=== PATIENT | female | born 1945 | race Caucasian/White ===

== ENCOUNTER 2020-03-21 13:18 | Observation (INO) | payer MEDICARE ==
[~2020-03-21] VITALS: Ht 162.6 cm; Wt 56.9 kg
[~2020-03-21 13:18] MED LIST: APIX5TAB PO; ATOR40TA78 PO; CITA20TA6 PO; HYDR-3240 PO; LOSA50TA14 PO; METO25TA35 PO; OMEP20TA62 PO; RISP0.5T3 PO; THIA100T10 PO
[2020-03-21] MEDS ORDERED: SODIUM CHLORIDE FLUSH 10ML SYR IVF ONE (13:30)
--- NOTE | 2020-03-21 13:42 | NUR ---
PT CLOTHING REMOVED. PT PLACED IN GOWN. PT ON CARIDAC AND VITALS MONITORS. EKG DONE. LABS BEING DRAWN. PT GRANDDAUGHTER HERE TO ASSIST WITH PT. PT ATTEMPTING TO GET OUT OF GURNEY MULTIPLE TIMES.
[2020-03-21 13:51] LABS: BASOPHILS # (AUTO) 0.04 x10^3/uL (0-0.1); BASOPHILS % (AUTO) 1 % (0-1); EOSINOPHILS # (AUTO) 0.01 x10^3/uL (0-0.4); EOSINOPHILS % (AUTO) 0 % (1-7); LYMPHOCYTES # (AUTO) 1.13 x10^3/uL (1-3.4); LYMPHOCYTES % (AUTO) 15 % (22-44); MD NO; MEAN CORPUSCULAR HEMOGLOBIN 28.1 pg (27.0-34.8); MEAN CORPUSCULAR HGB CONC 33.2 g/dL (32.4-35.8); MEAN CORPUSCULAR VOLUME 84.6 fL (80-100); MEAN PLATELET VOLUME 7.8 fL (7.4-10.4); MONOCYTES # (AUTO) 0.67 x10^3/uL (0.2-0.8); MONOCYTES % (AUTO) 9 % (2-9); NEUTROPHILS % (AUTO) 75 % (42-75); PLATELET COUNT 236 x10^3/uL (130-400); RED BLOOD COUNT 4.12 x10^6/uL (3.82-5.3); RED CELL DISTRIBUTION WIDTH 14.5 % (9.6-15.2)
[2020-03-21 14:00] LABS: ALANINE AMINOTRANSFERASE 18 U/L (12-78); ALBUMIN 3.5 g/dL (3.4-5.0); ANION GAP 8 mmol/L (5-15); CALCIUM 9.2 mg/dL (8.5-10.1); CHLORIDE 105 mmol/L (98-107); CREATININE 1.48 mg/dL (0.55-1.02)
[2020-03-21 14:04] LABS: ALKALINE PHOSPHATASE 108 U/L (45-117); BILIRUBIN,TOTAL 1.2 mg/dL (0.2-1.0); TOTAL PROTEIN 8.3 g/dL (6.4-8.2); TROPONIN I < 0.015 ng/mL (0.000-0.045)
[2020-03-21 15:04] LABS: MICROSCOPIC INDICATED
--- NOTE | 2020-03-21 15:08 | NUR ---
URINE SAMPLE OBTAINED, URINE WALKED TO LAB. PT FAMILY REMAINS AT BEDSIDE. VSS. PT AWAITING ROOM ASSIGNMENT.
--- NOTE | 2020-03-21 15:55 | NUR ---
SPOKE WITH DR. CEDENO ABOUT THOUGHTS ON STARTING SEPSIS PROTOCOL. PT VSS, PT NON FEBRILE. HAS UTI, ABX ORDERED. ERP STATED PT DOES NOT NEED LACTIC ACID NOR BLOOD CULTURES AT THIS TIME.
[2020-03-21] MEDS ORDERED: CEFTRIAXONE PMX 1GM/50ML 50 ML ONE (15:59)
[2020-03-21] MEDS ORDERED: CEFTRIAXONE PMX 1GM/50ML 50 ML IV ONE (16:00)
--- NOTE | 2020-03-21 16:00 | NUR ---
REPORT TO NAKUL MESSER.
[2020-03-21] MEDS ORDERED: RISPERIDONE 1 MG TAB.RAPDIS PO PRN (16:30)
[2020-03-21] MEDS ORDERED: hydrALAzine 20 MG/ML, 1ML IVPush PRN (16:30)
[2020-03-21] MEDS ORDERED: ONDANSETRON 2MG/ML, 2ML IVPush PRN (16:30)
[2020-03-21] MEDS ORDERED: ACETAMINOPHEN 325 MG TABLET PO PRN (16:30)
[2020-03-21 16:38] VITALS: BP_SYST 115; BP_SYST 158; BP_SYST 162; BP_DIAS 82; BP_DIAS 83; BP_DIAS 90
[2020-03-21] MEDS: SODIUM CHLORIDE 0.9% 1,000 ML IV SCH (17:40)
[2020-03-21 20:00] VITALS: BP 111/69
[2020-03-21] MEDS: APIXABAN 2.5 MG TABLET PO SCH (20:22)
[2020-03-21] MEDS ORDERED: ATORVASTATIN 40 MG TABLET PO SCH (21:00)
[2020-03-22 01:04] VITALS: BP 159/85
[2020-03-22 05:46] LABS: BASOPHILS # (AUTO) 0.03 x10^3/uL (0-0.1); BASOPHILS % (AUTO) 0 % (0-1); EOSINOPHILS # (AUTO) 0.11 x10^3/uL (0-0.4); EOSINOPHILS % (AUTO) 2 % (1-7); LYMPHOCYTES # (AUTO) 1.22 x10^3/uL (1-3.4); LYMPHOCYTES % (AUTO) 18 % (22-44); MD NO; MEAN CORPUSCULAR HEMOGLOBIN 27.8 pg (27.0-34.8); MEAN CORPUSCULAR HGB CONC 32.8 g/dL (32.4-35.8); MEAN CORPUSCULAR VOLUME 84.9 fL (80-100); MEAN PLATELET VOLUME 8.1 fL (7.4-10.4); MONOCYTES # (AUTO) 0.68 x10^3/uL (0.2-0.8); MONOCYTES % (AUTO) 10 % (2-9); NEUTROPHILS # (AUTO) 4.83 x10^3/uL (1.8-6.8); NEUTROPHILS % (AUTO) 70 % (42-75); PLATELET COUNT 191 x10^3/uL (130-400); RED BLOOD COUNT 3.81 x10^6/uL (3.82-5.3); RED CELL DISTRIBUTION WIDTH 14.5 % (9.6-15.2)
[2020-03-22 05:53] LABS: CHLORIDE 108 mmol/L (98-107)
[2020-03-22 05:58] LABS: ANION GAP 5 mmol/L (5-15); CALCIUM 8.7 mg/dL (8.5-10.1); CREATININE 1.24 mg/dL (0.55-1.02)
[2020-03-22] MEDS ORDERED: OMEPRAZOLE 20 MG CAPSULE.DR PO SCH (06:00)
[2020-03-22] MEDS: SODIUM CHLORIDE 0.9% 1,000 ML IV SCH (06:15)
[2020-03-22 06:29] VITALS: BP 133/78
[2020-03-22] MEDS ORDERED: CEFTRIAXONE PMX 1GM/50ML 50 ML IV SCH (07:00)
[2020-03-22 07:55] VITALS: BP 142/81
[2020-03-22 07:57] VITALS: BP_SYST 105; BP_SYST 136; BP_DIAS 71; BP_DIAS 97
[2020-03-22] MEDS ORDERED: CITALOPRAM 20 MG TABLET PO SCH (09:00)
[2020-03-22] MEDS ORDERED: METOPROLOL TARTRATE 25 MG TAB PO SCH (09:00)
[2020-03-22] MEDS: APIXABAN 2.5 MG TABLET PO SCH (09:56)
[2020-03-22 12:27] VITALS: BP 153/90
[2020-03-22] MEDS ORDERED: CEFD300C37 PO (12:41)
[2020-03-22] MEDS ORDERED: METO25TA35 PO (12:41)
== END 2020-03-22 17:03 | disposition home or self-care (01) ==
LOC: ED 14:25 → SUATTDRO 15:57 → INTOOBSV 16:37 → EDIP 16:37 → 4EST 16:44
PROVIDERS: ADMIT Hospitalist; ATTEND Hospitalist
DX: I95.1 Orthostatic hypotension (principal); N39.0 Urinary tract infection, site not specified; N17.0 Acute kidney failure with tubular necrosis; E86.0 Dehydration; I10 Essential (primary) hypertension; G90.9 Disorder of the autonomic nervous system, unspecified; I25.2 Old myocardial infarction; F03.90 Unspecified dementia, unspecified severity, without behavioral disturbance, psychotic disturbance, mood disturbance, and anxiety; I25.10 Atherosclerotic heart disease of native coronary artery without angina pectoris; Z79.899 Other long term (current) drug therapy; Z86.718 Personal history of other venous thrombosis and embolism; Z86.711 Personal history of pulmonary embolism; Z87.448 Personal history of other diseases of urinary system; Z79.01 Long term (current) use of anticoagulants; Z90.5 Acquired absence of kidney
CPT/HCPCS: 36415; 70450; 80048; 80053; 81001; 83735; 84484; 85025; 86850; 86900; 87077; 87086; 87186; 93005; 96361; 96365; 96366; 99285; G0378; J0696; J7030

== ENCOUNTER 2020-08-27 13:04 | Inpatient (IN) | payer MEDICARE ==
[~2020-08-27] VITALS: Ht 160 cm; Wt 49.5 kg
[~2020-08-27 13:04] MED LIST changes: +CEFD300C37 PO; +HYDR-1067 PO; -HYDR-3240 PO; -RISP0.5T3 PO; +RISP0.5T62 PO
[2020-08-27] MEDS ORDERED: SODIUM CHLORIDE FLUSH 10ML SYR IVF ONE (13:30)
--- NOTE | 2020-08-27 13:41 | NUR ---
PT IS A 75F WHO LIVES AT HOME WITH FAMILY. THEY NOTICED IN THE LAST 5 DAYS SHE HAS BECOME MORE DISORIENTED AND NOT EATING OR DRINKING NORMALLY. SHE HAS HER SON AND GRANDAUGHTER AT BEDSIDE. SHE HAS A HISTORY OF DEMENTIA BUT HER SYMPTOMS SEEM TO BE WORSENING. PROVIDER AT BEDSIDE FOR EVAL. LABS DRAWN AND EKG COMPLETED. PT ON CONTINUOUS SP02 AND CYCLING VITALS. CALL LIGHT WITHIN REACH.
[2020-08-27 13:50] LABS: BASOPHILS % (AUTO) 0 % (0-1); EOSINOPHILS % (AUTO) 0 % (1-7); LYMPHOCYTES % (AUTO) 13 % (22-44); MEAN CORPUSCULAR HEMOGLOBIN 25.5 pg (27.0-34.8); MEAN CORPUSCULAR HGB CONC 32.8 g/dL (32.4-35.8); MEAN PLATELET VOLUME 7.2 fL (7.4-10.4); MONOCYTES % (AUTO) 7 % (2-9); NEUTROPHILS % (AUTO) 80 % (42-75); PLATELET COUNT 278 x10^3/uL (130-400); RED BLOOD COUNT 4.06 x10^6/uL (3.82-5.3); RED CELL DISTRIBUTION WIDTH 17.6 % (9.6-15.2)
[2020-08-27 13:51] LABS: MD NO
[2020-08-27 14:02] LABS: ALANINE AMINOTRANSFERASE 31 U/L (12-78); ALBUMIN 2.7 g/dL (3.4-5.0); ANION GAP 12 mmol/L (5-15); CALCIUM 10.8 mg/dL (8.5-10.1); CHLORIDE 109 mmol/L (98-107)
[2020-08-27 14:12] LABS: ALKALINE PHOSPHATASE 488 U/L (45-117); BILIRUBIN,TOTAL 1.6 mg/dL (0.2-1.0); TOTAL PROTEIN 9.2 g/dL (6.4-8.2)
--- NOTE | 2020-08-27 14:22 | NUR ---
PT RESTING COMFORTABLY WITH FAMILY AT BEDSIDE. WARM BLANKETS PROVIDED, CALL LIGHT WITHIN REACH. NO FURTHER NEEDS AT THIS TIME
--- NOTE | 2020-08-27 14:54 | NUR ---
PT TO CT VIA [facility]
[2020-08-27] MEDS ORDERED: SODIUM CHLORIDE 0.9% 1,000 ML IV ONE (15:00)
[2020-08-27] MEDS ORDERED: ONDANSETRON ODT 4 MG PO PRN (15:30)
[2020-08-27] MEDS ORDERED: ACETAMINOPHEN 325 MG TABLET PO PRN (15:30)
[2020-08-27] MEDS ORDERED: SODIUM CHLORIDE 0.9% 1,000 ML IV SCH (15:30)
--- NOTE | 2020-08-27 15:32 | NUR ---
PT BACK FROM CT, ULTRASOUND AT BEDSIDE. DAUGHTER IN LAW ALSO AT BEDSIDE. CALL LIGHT WITHIN REACH.
--- NOTE | 2020-08-27 15:57 | NUR ---
URINE COLLECTED AND WALKED TO LAB
[2020-08-27 16:16] LABS: MICROSCOPIC INDICATED
[2020-08-27] MEDS: SODIUM CHLORIDE 0.9% 1,000 ML IV SCH (17:19)
[2020-08-27 17:46] VITALS: BP 169/100
[2020-08-27 20:00] VITALS: BP 177/90
[2020-08-27 20:30] VITALS: BP 188/105
[2020-08-27] MEDS ORDERED: hydrALAzine 20 MG/ML, 1ML ONE (20:36)
[2020-08-27] MEDS: APIXABAN 5 MG TABLET PO SCH (20:40)
[2020-08-27] MEDS: ATORVASTATIN 40 MG TABLET PO SCH (20:40)
[2020-08-27] MEDS ORDERED: hydrALAzine 20 MG/ML, 1ML IV ONE (21:00)
[2020-08-27 21:34] VITALS: BP 165/96
[2020-08-28 00:42] VITALS: BP 162/81
[2020-08-28] MEDS: SODIUM CHLORIDE 0.9% 1,000 ML IV SCH ×3 (01:00→17:26)
[2020-08-28 05:03] LABS: BASOPHILS % (AUTO) 0 % (0-1); EOSINOPHILS % (AUTO) 0 % (1-7); LYMPHOCYTES % (AUTO) 16 % (22-44); MEAN CORPUSCULAR HEMOGLOBIN 25.3 pg (27.0-34.8); MEAN CORPUSCULAR HGB CONC 32.3 g/dL (32.4-35.8); MEAN PLATELET VOLUME 7.2 fL (7.4-10.4); MONOCYTES % (AUTO) 9 % (2-9); NEUTROPHILS % (AUTO) 76 % (42-75); PLATELET COUNT 205 x10^3/uL (130-400); RED BLOOD COUNT 3.68 x10^6/uL (3.82-5.3); RED CELL DISTRIBUTION WIDTH 17.9 % (9.6-15.2)
[2020-08-28 05:05] LABS: MD NO
[2020-08-28 05:13] LABS: ALANINE AMINOTRANSFERASE 27 U/L (12-78); ALBUMIN 2.4 g/dL (3.4-5.0); ANION GAP 11 mmol/L (5-15); CALCIUM 10.4 mg/dL (8.5-10.1); CHLORIDE 113 mmol/L (98-107); CREATININE 0.84 mg/dL (0.55-1.02)
[2020-08-28 05:15] LABS: ALKALINE PHOSPHATASE 412 U/L (45-117); BILIRUBIN,TOTAL 1.5 mg/dL (0.2-1.0); TOTAL PROTEIN 8.1 g/dL (6.4-8.2)
[2020-08-28 06:12] VITALS: BP 177/96
[2020-08-28] MEDS: OMEPRAZOLE 20 MG CAPSULE.DR PO SCH (06:28)
[2020-08-28] MEDS: ASPIRIN 81 MG TABLET EC PO SCH (06:29)
[2020-08-28 07:50] VITALS: BP 171/96
[2020-08-28] MEDS: APIXABAN 5 MG TABLET PO SCH ×2 (08:20→21:20)
[2020-08-28] MEDS: AMLODIPINE 10 MG TAB PO SCH (08:20)
[2020-08-28] MEDS: CITALOPRAM 20 MG TABLET PO SCH (08:20)
[2020-08-28] MEDS ORDERED: hydrALAzine 20 MG/ML, 1ML IV PRN (08:30)
[2020-08-28 08:51] VITALS: BP 166/81
[2020-08-28] MEDS ORDERED: OMNIPAQUE 350 MG/ML, 100ML BOTTLE ONE (09:06)
[2020-08-28 12:34] VITALS: BP 153/95
[2020-08-28] MEDS ORDERED: SODIUM CHLORIDE 0.9% 1,000 ML IV SCH (15:30)
[2020-08-28 20:01] VITALS: BP 163/92
[2020-08-28] MEDS: ATORVASTATIN 40 MG TABLET PO SCH (21:20)
[2020-08-29 01:11] VITALS: BP 165/88
[2020-08-29] MEDS: SODIUM CHLORIDE 0.9% 1,000 ML IV SCH (06:21)
[2020-08-29] MEDS: ASPIRIN 81 MG TABLET EC PO SCH (06:21)
[2020-08-29 06:51] VITALS: BP 158/92
[2020-08-29] MEDS: APIXABAN 5 MG TABLET PO SCH (08:09)
[2020-08-29] MEDS: AMLODIPINE 10 MG TAB PO SCH (08:09)
[2020-08-29] MEDS: OMEPRAZOLE 20 MG CAPSULE.DR PO SCH (08:09)
[2020-08-29] MEDS: CITALOPRAM 20 MG TABLET PO SCH (08:09)
== END 2020-08-29 14:58 | disposition hospice, home (50) | DRG 754 ==
LOC: ED 14:44 → EDIP 14:49 → 3N 16:02
PROVIDERS: ADMIT Internal Medicine Infectious Disease; ATTEND Hospitalist
PROC: 0T9B70Z Drainage of Bladder with Drainage Device, Via Natural or Artificial Opening (ICD-10-PCS; principal; 2020-08-27)
DX: C79.62 Secondary malignant neoplasm of left ovary (principal); G93.41 Metabolic encephalopathy; E46 Unspecified protein-calorie malnutrition; Z68.1 Body mass index [BMI] 19.9 or less, adult; C80.1 Malignant (primary) neoplasm, unspecified; E86.0 Dehydration; F03.90 Unspecified dementia, unspecified severity, without behavioral disturbance, psychotic disturbance, mood disturbance, and anxiety; E83.52 Hypercalcemia; I10 Essential (primary) hypertension; Z66 Do not resuscitate; I25.10 Atherosclerotic heart disease of native coronary artery without angina pectoris; Z86.711 Personal history of pulmonary embolism; Z86.718 Personal history of other venous thrombosis and embolism; I25.2 Old myocardial infarction; Z90.5 Acquired absence of kidney; Z88.8 Allergy status to other drugs, medicaments and biological substances; Z88.6 Allergy status to analgesic agent; Z85.528 Personal history of other malignant neoplasm of kidney; Z95.828 Presence of other vascular implants and grafts
CPT/HCPCS: 36415; 70450; 71045; 71260; 74177; 76700; 80053; 81001; 82330; 82977; 83605; 83735; 83970; 84145; 84443; 85025; 87040; 87086; 93005; 96360; 99285; G0378; Q9967; J0360; J7030